=== PATIENT | male | born 1970 | race Caucasian/White ===

== ENCOUNTER 2018-12-24 08:50 | Observation (INO) | payer OTHER ==
[~2018-12-24] VITALS: Ht 185.4 cm; Wt 116.6 kg
[2018-12-24 08:50] VITALS: BP 160/108
[2018-12-24 09:22] LABS: ABSOLUTE NEUTROPHILS 3.5 thou/uL (1.4-8.2); BASOPHILS 0.5 % (0.0-2.0); EOSINOPHILS 1.7 % (0.0-3.0); HEMATOCRIT 44.6 % (42.0-52.0); HEMOGLOBIN 15.5 gm/dL (14.0-18.0); LYMPHOCYTES 31.3 % (24.0-44.0); MCH 32.2 pg (26.0-34.0); MCHC 34.8 g/dL (28.0-37.0); MCV 92.7 fL (80.0-100.0); MONOCYTES 9.1 % (1.0-8.0); PLATELET COUNT 204 thou/uL (150-400); POLYS 57.4 % (36.0-66.0); WBC 6.1 thou/uL (4.0-11.0)
[2018-12-24 09:26] LABS: ANION GAP 11 mmol/L (7-16); BUN 13 mg/dL (7-18); CHLORIDE 100 mmol/L (98-107); CO2 26 mmol/L (21-32); GLUCOSE 108 mg/dL (74-106); SODIUM 137 mmol/L (136-145)
[2018-12-24 09:35] LABS: D-DIMER 0.19 ug/mLFEU (0.19-0.50); PROTIME 10.3 Seconds (9.3-11.4)
[2018-12-24 09:36] LABS: ALBUMIN 4.2 g/dL (3.4-5.0); DIRECT BILIRUBIN 0.1 mg/dL (<0.1-0.3); LIPASE 82 U/L (73-393); SGOT 24 U/L (15-37); SGPT 45 U/L (30-65); TOTAL BILIRUBIN 0.6 mg/dL (<0.1-1.0); TOTAL PROTEIN 7.7 g/dL (6.4-8.2); TROPONIN-I <0.06 ng/mL (<0.06)
[2018-12-24 10:42] VITALS: BP 160/108
[2018-12-24 11:35] VITALS: BP 141/99
[2018-12-24 11:46] VITALS: BP 171/109
--- NOTE | 2018-12-24 16:03 | NUR ---
ASSUMED CARE OF PATIENT TODAY WHEN HE WAS ADMITTED FROM THE ER. VSS. ALERT AND ORIENTED X 4. NO COMPLAINT OF FURTHER CHEST PAIN. CARDIOLOGY CONSULTED. STRESS TEST ORDERED. CONTINUING TO MONITOR PATIENT.
[2018-12-24 16:56] VITALS: BP 156/117
[2018-12-24 20:55] VITALS: BP 155/97
[2018-12-25 05:00] VITALS: BP 133/93
--- NOTE | 2018-12-25 05:54 | NUR ---
ASSUMED CARE OF PT AT 1900. A&OX4, COOPERATIVE. VS STABLE, SR ON TELE, AFEBRILE. DENIED CHEST PAIN, TIGHTNESS OR FLUTTERING. STATED HE IS READY FOR STRESS TEST TO SEE IF THERE IS ANYTHING WRONG. PT ALSO STATED HIS MOM HAD HF AND HE IS WILLINGLY TO MAKE LIFESTYLE CHANGES IF HE HAS THE SAME THING. DENIED DIFFICULTY BREATHING AND SOA. UP AD COURTNEY, STEADY GAIT. ABLE TO SLEEP OVER NOC. PROGRESSING TOWARDS POC GOALS.
[2018-12-25 06:35] LABS: ANION GAP 7 mmol/L (7-16); BUN 15 mg/dL (7-18); CALCIUM 8.5 mg/dL (8.5-10.1); CHLORIDE 105 mmol/L (98-107); CO2 28 mmol/L (21-32); GLUCOSE 111 mg/dL (74-106); POTASSIUM 4.1 mmol/L (3.5-5.1); SODIUM 140 mmol/L (136-145); TROPONIN-I <0.06 ng/mL (<0.06)
[2018-12-25 06:50] LABS: CHOLESTEROL 206 mg/dL (<200); HDL CHOLESTEROL 32 mg/dL (>40); LDL CHOLESTEROL 125 mg/dL (<100); TC:HDL 6.4 Ratio (Not establshd); TRIGLYCERIDE 247 mg/dL (<150); VLDL 49 mg/dL (<40)
[2018-12-25 07:56] VITALS: BP 174/118
--- NOTE | 2018-12-25 08:33 | EKG ---
[place] [address] [facility] [place] [address] ELECTROCARDIOGRAM REPORT Name: ROBBIE RUSHING Room #: 356-[facility]..#: [id number] Admission: 12/24/18 Attend Phys: Gricelda Escobar MD Discharge: Date of : 72 Report #: [id number] THIS REPORT FOR: //name// [facility] ED Test Date: 2018-12-24 Test Time: 08:54:30 Pat Name: ROBBIE RUSHING Department: Room: 356 Gender: M Test Rack Operator: Bree GARCIA : 1970 Requested By: Nadir Curry Order Number: [id number] MD: Pete Otto Measurements Intervals [place] Rate: 64 P: 45 CT: 210 QRS: -7 QRSD: 91 T: 31 QT: 378 QTc: 390 Interpretive Statements Sinus rhythm Prolonged CT interval Baseline wander in lead(s) I,III,aVL No previous ECG available for comparison Electronically Signed On 12-25-2018 8:33:09 CDT by Pete Otto [email or web address] <ELECTRONICALLY SIGNED> By: Pete Otto MD, [facility] 12/25/18 0833 3 Pete Otto MD, [facility] /EPI
--- NOTE | 2018-12-25 08:37 | EKG ---
[address] [address] ELECTROCARDIOGRAM REPORT Name: ROBBIE RUSHING Room #: 356-[facility]..#: [id number] Admission: 12/24/18 Attend Phys: Gricelda Escobar MD Discharge: Date of : 72 Report #: [id number] THIS REPORT FOR: //name// [facility] Test Date: 2018-12-24 Test Time: 17:01:13 Pat Name: ROBBIE RUSHING Department: Room: 356 Gender: M Chief Operator Reformer: Bree CARRION : 1970 Requested By: Irma Albarran Order Number: [id number] MD: Miller Godinez Measurements Intervals [place] Rate: 68 P: 28 [place]: 200 QRS: -18 QRSD: 90 T: 35 QT: 374 QTc: 398 Interpretive Statements Sinus rhythm Inferior infarct, old No previous ECG available for comparison Electronically Signed On 12-25-2018 8:37:00 CDT by Miller Godinez [email or web address] <ELECTRONICALLY SIGNED> By: Miller Godinez MD 12/25/18 0837 D: 10/1700 00 Miller Godinez MD /LUIS FERNANDO
--- NOTE | 2018-12-25 10:03 | EXE ---
[facility] [address] [place] [address] STRESS ECHOCARDIOGRAM Name: ROBBIE RUSHING Room #: 356-[facility] IN M.R.#: [id number] Admission: 12/24/18 Attend Phys: Gricelda Escobar Discharge: Date of : 72 Report #: [id number] THIS REPORT FOR: //name// APPROVED REPORT Study performed: 12/25/2018 09:04:46 Exam: Stress Echocardiogram Indication: Chest pain Patient Location: Echo lab Stress Nurse: Hali Fields RN Room #: 356 Status: routine Ht: 6 ft 0 in HR: 65 bpm BP: 174/118 mmHg Rhythm: NSR Medical History Allergies: No known drug allergies Cardiac Risk Factors: HTN, FHX of CAD Procedure The patient underwent an Exercise Stress Test using the Royer Protocol. Blood pressure, heart rate, and EKG were monitored. An Echocardiogram was performed by commercial maintenance technician in four stages in quad fashion. At peak stress, four selected images were obtained and placed side by side with resting images for comparison. Stress Test Details Stress Test: Exercise stress testing was performed using a Royer protocol. HR Resting HR: 68 bpm Max Heart Rate (APMHR): 173 bpm Max HR Achieved: 173 bpm Target HR (85% APMHR): 147 bpm % of APMHR: 100 Recovery HR: 95 bpm HR response to stress: Normal HR response to stress BP Resting BP: 174/118 mmHg Max BP: 212/106 mmHg Recovery BP: 186/86 mmHg BP response to stress: Hypertensive response to stress. [facility] [address] [address] STRESS ECHOCARDIOGRAM Name: ROBBIE RUSHING Room #: 356-P [facility] IN .R.#: [id number] Admission: 12/24/18 Attend Phys: Gricelda Escobar Discharge: Date of : 72 Report #: [id number] ECG Resting ECG: Sinus Rhythm Stress ECG: Sinus Rhythm, nonspecific ST-T abnormalities ST Change: Non-ischemic Clinical Reason for Termination: Completed protocol, fatigue Stress Symptoms: Calf pain Exercise duration: 9 min 36 sec Highest Stage Achieved: Stage 4: 4.2 mph at 16% grade. Exercise capacity: 12 METs Pre-Stress Echo The resting Echocardiogram showed normal left ventricular contractility with an estimated Ejection Fraction of about 55%. The resting echocardiogram demonstrated normal wall motion in all wall segments. Normal wall motion in all segments on baseline images. Post-Stress Echo The stress Echocardiogram showed normal left ventricular contractility with an estimated Ejection Fraction of about 70%. Compared to rest, there were no stress-induced wall motion abnormalities. Normal augmentation of wall motion in all segments on post stress images. Clinical No clinical or ECG evidence for ischemia. Conclusion Clinical Response: Non-ischemic Exercise Capacity: Average Stress ECG Response: Non-ischemic Stress Echo Images: Non-ischemic The left ventricle is normal in size and wall thickness in both the rest and stress images. Other Information Study Quality: Good <Conclusion> [facility] [address] [place] [address] STRESS ECHOCARDIOGRAM Name: ROBBIE RUSHING Room #: 356-P [facility] IN M.R.#: [id number] Admission: 12/24/18 Attend Phys: Gricelda Escobar Discharge: Date of : 72 Report #: [id number] The left ventricle is normal in size and wall thickness in both the rest and stress images. <ELECTRONICALLY SIGNED> By: Jake Chou MD 12/25/183 02 02 Jake Chou MD /INF
[2018-12-25 10:31] VITALS: BP 148/90
[2018-12-25 11:42] VITALS: BP 148/102
[2018-12-25] MEDS ORDERED: LISINOPRIL20 MG PO (12:50)
--- NOTE | 2018-12-25 13:09 | NUR ---
PT ALERT AND ORIENTED TIMES FOUR. BP ELEVATED NEDICATIONS GIVEN BP A LITTLE BETTER. OTHER VSS, IVF INFUSING PER ORDER. PT DENIES PAIN/SOA. PT TOLERATES MEDS AND MEALS. PT UP AB COURTNEY WITH STEADY GAIT. PT AT BEDSIDE. PLANS FOR DISCHARGE TODAY.
[2018-12-25 13:33] VITALS: BP 148/102
--- NOTE | 2018-12-26 08:03 | EKG ---
[address] [place] [employer] [address] ELECTROCARDIOGRAM REPORT Name: ROBBIE RUSHING Room #: 356-[facility]#: [id number] Admission: 12/24/18 Attend Phys: Gricelda Escobar MD Discharge: 12/25/18 Date of : 72 Report #: [id number] THIS REPORT FOR: //name// [facility] Test Date: 2018-12-25 Test Time: 08:46:32 Pat Name: ROBBIE RUSHING Department: Room: 356 Gender: M Senior Web Architect: CASSY : 1970 Requested By: Irma Albarran Order Number: [id number] MD: Pete Otto Measurements Intervals [place] Rate: 61 P: 47 [place]: 213 QRS: -2 QRSD: 98 T: 35 QT: 386 QTc: 389 Interpretive Statements Sinus rhythm Prolonged [place] interval Compared to ECG 12/24/2018 17:01:13 No significant change was found Electronically Signed On 12-26-2018 8:03:43 CDT by Pete Otto [email or web address] <ELECTRONICALLY SIGNED> By: Pete Otto MD, [facility] 10/802 5 5 Pete Otto MD, [facility] /EPI
== END 2018-12-25 14:12 | disposition home or self-care (01) ==
LOC: ER 08:50 → EROBS 10:38 → 3W 11:49
PROVIDERS: Emergency Medicine; Nurse Practitioner; ADMIT Internal Medicine
DX: R07.89 Other chest pain (principal); K29.70 Gastritis, unspecified, without bleeding; F10.10 Alcohol abuse, uncomplicated; E78.5 Hyperlipidemia, unspecified; I10 Essential (primary) hypertension; K21.9 Gastro-esophageal reflux disease without esophagitis; Z79.899 Other long term (current) drug therapy

== ENCOUNTER → 2020-07-06 | Outpatient (CLI) | payer OTHER ==
[~2020-07-06] MED LIST: LISINOPRIL20 MG PO
== END ==
LOC: SJCVCIMAG 11:57
PROVIDERS: ATTEND Internal Medicine Cardiovascular Disease
DX: I11.9 Hypertensive heart disease without heart failure (principal); E78.5 Hyperlipidemia, unspecified; Z72.89 Other problems related to lifestyle